=== PATIENT | male | born 1980 ===

== ENCOUNTER 2023-10-01 13:00 | Emergency (ER) | payer OTHER ==
[~2023-10-01] VITALS: Ht 175.3 cm; Wt 132.0 kg
--- NOTE | ~2023-10-01 | EKG ---
[facility] [address] [facility] [place], [place] [address] Draft EK completed, results pending confirmation PATIENT NAME: ANGÉLICAVLAD Electrocardiogram DATE OF : 76 PHYSICIAN: PRELIMINARY REPORT #: [id number] REPORT IS CONFIDENTIAL AND NOT TO BE RELEASED WITHOUT AUTHORIZATION
[~2023-10-01 13:00] MED LIST: BUSPIRONE HCL10 MG PO; HUMALOG100 UNIT/2 SUB-Q; LANTUS100 UNITS/ SUB-Q; PRAZOSIN HCL2 MG PO; RISPERDAL4 MG PO; TRAZODONE HCL100 MG PO; ZESTRIL10 MG PO
[2023-10-01] MEDS ORDERED: VENTOLIN HFA18 GM INH (13:12)
[2023-10-01] MEDS ORDERED: ASPIRIN 81 MG CHEW PO ONE (13:15)
[2023-10-01] MEDS ORDERED: SYMBICORT 16010.2 GM INH (13:15)
[2023-10-01] MEDS ORDERED: ALBUTEROL/IPRATROPIUM 3 ML NEB ONE (13:18)
[2023-10-01 13:25] LABS: MONOCYTES 5.7 % (0-12)
[2023-10-01 13:28] LABS: BASOPHILS 0.6 % (0-2); EOSINOPHILS 6.6 % (0-6); HEMATOCRIT 47.9 % (35.0-50.0); HEMOGLOBIN 16.3 g/dL (12.0-18.0); LYMPHOCYTES 23.2 % (24-44); MCH 30.7 (27-36); MCV 90.3 fl (81-99); NEUTROPHILS 63.9 % (39-80); PLATELET COUNT 156 K/uL (140-440); RBC 5.31 M/ul (4.3-5.7); RDW 13.5 (10.5-15.0)
[2023-10-01] MEDS ORDERED: SODIUM CHLORIDE 0.9% 1,000 ML IV PRN (13:30)
[2023-10-01] MEDS ORDERED: ALBUTEROL/IPRATROPIUM 3 ML NEB INH ONE ×2 (13:30→14:00)
[2023-10-01] MEDS ORDERED: DEXAMETHASONE SOD PHOS 10 MG/ML VIAL IV ONE (13:30)
[2023-10-01 13:44] LABS: ALBUMIN 3.6 g/dL (3.4-5.0); ALBUMIN/GLOBULIN RATIO 0.86 (1.1-2.4); ANION GAP 14.1 (7-21); BILIRUBIN, TOTAL 0.4 ng/dL (0.2-1.0); BUN/CREATININE RATIO 7.46 (6.0-28.6); CALCIUM 8.6 mg/dL (8.5-10.1); CREATININE, SERUM 1.34 mg/dL (0.70-1.30); POTASSIUM 4.1 mmol/L (3.5-5.1); PROTEIN, TOTAL 7.8 g/dL (6.4-8.2)
[2023-10-01 14:31] VITALS: BP 108/77
[2023-10-01] MEDS ORDERED: NEBULIZER UNIT XX (14:32)
[2023-10-01] MEDS ORDERED: PREDNISONE20 MG PO (14:32)
[2023-10-01] MEDS ORDERED: ALBUTEROL1.25 MG/3 INH (14:32)
[2023-10-01] MEDS ORDERED: DOXYCYCLINE HY100 MG PO (14:32)
== END 2023-10-01 14:37 ==
LOC: ED 13:00
PROVIDERS: Emergency Medicine
DX: J44.89 Other specified chronic obstructive pulmonary disease (principal); E10.9 Type 1 diabetes mellitus without complications; I10 Essential (primary) hypertension; E78.5 Hyperlipidemia, unspecified; F17.200 Nicotine dependence, unspecified, uncomplicated; Z79.4 Long term (current) use of insulin; Z79.899 Other long term (current) drug therapy
CPT/HCPCS: 36415; 71045; 80053; 83735; 84484; 85025; 93005; 93010; 96374; 99285-25; J1100

== ENCOUNTER 2024-04-05 10:52 | Emergency (ER) | payer MEDICARE, OTHER ==
[~2024-04-05] VITALS: Ht 175.3 cm; Wt 135.2 kg
[~2024-04-05 10:52] MED LIST changes: +ALBUTEROL1.25 MG/3 INH; +DOXYCYCLINE HY100 MG PO; +NEBULIZER UNIT XX; +PREDNISONE20 MG PO; +SYMBICORT 16010.2 GM INH; +VENTOLIN HFA18 GM INH
[2024-04-05 11:03] LABS: BASOPHILS 0.9 % (0-2); EOSINOPHILS 6.2 % (0-6); HEMATOCRIT 45.9 % (35.0-50.0); HEMOGLOBIN 16.7 g/dL (12.0-18.0); LYMPHOCYTES 27.9 % (24-44); MCH 32.2 (27-36); MCHC 36.3 g/dl (30-36); MCV 88.6 fl (81-99); MONOCYTES 4.1 % (0-12); NEUTROPHILS 60.9 % (39-80); PLATELET COUNT 166 K/uL (140-440); RBC 5.19 M/ul (4.3-5.7); RDW 13.8 (10.5-15.0)
[2024-04-05 11:18] LABS: ALBUMIN 3.3 g/dL (3.4-5.0); ALBUMIN/GLOBULIN RATIO 0.83 (1.1-2.4); ANION GAP 16.5 (7-21); BILIRUBIN, TOTAL 0.6 ng/dL (0.2-1.0); BUN/CREATININE RATIO 8.51 (6.0-28.6); CALCIUM 8.1 mg/dL (8.5-10.1); CREATININE, SERUM 1.41 mg/dL (0.70-1.30); POTASSIUM 4.5 mmol/L (3.5-5.1); PROTEIN, TOTAL 7.3 g/dL (6.4-8.2)
[2024-04-05 13:22] VITALS: BP 138/86
--- NOTE | 2024-04-06 19:27 | EKG ---
[facility] [address] [facility] [place] [address] Signed Sinus rhythm with frequent premature ventricular complexes in a pattern of bigeminy Prolonged QT Abnormal ECG When compared with ECG of 01-Oct-2023 premature ventricular complexes are more frequent Confirmed by Dago Hartman MD ([id number]) on 04/06/2024 7:27:09 PM Electronically Signed By: DAGO HARTMAN MD 04/06/241926 PATIENT NAME: ANGÉLICAVLADGODFREY ORTIZ Electrocardiogram DATE OF : 76 PHYSICIAN: DAGO HARTMAN MD REPORT #: [id number] REPORT IS CONFIDENTIAL AND NOT TO BE RELEASED WITHOUT AUTHORIZATION
== END 2024-04-05 13:24 | disposition home or self-care (01) ==
LOC: ED 10:52
PROVIDERS: Emergency Medicine
DX: R07.9 Chest pain, unspecified (principal); F41.9 Anxiety disorder, unspecified; J44.89 Other specified chronic obstructive pulmonary disease; E10.9 Type 1 diabetes mellitus without complications; I10 Essential (primary) hypertension; E78.5 Hyperlipidemia, unspecified; Z79.4 Long term (current) use of insulin; Z79.899 Other long term (current) drug therapy
CPT/HCPCS: 36415; 71045; 80053; 84484; 85025; 99285-25

== ENCOUNTER 2024-05-01 15:05 | Emergency (ER) | payer OTHER, MEDICARE ==
[~2024-05-01] VITALS: Ht 175.3 cm; Wt 129.7 kg
--- OUTSIDE RECORDS SUMMARY | 2024-05-01 15:11 | XMS ---
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 Lupe has no Care Guidelines for this patient. [place] VISIT COUNT (12 MO.) 4 [facility] TOTAL 4 NOTE: Visits indicate total known visits. [place] [place] (12 MO.) 05/01/2024 15:[address] 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
[2024-05-01 15:55] VITALS: BP 134/68
== END 2024-05-01 15:59 | disposition home or self-care (01) ==
LOC: ED 15:05
DX: M54.89 Other dorsalgia (principal); G89.29 Other chronic pain; E10.9 Type 1 diabetes mellitus without complications; J44.89 Other specified chronic obstructive pulmonary disease; I10 Essential (primary) hypertension; E78.5 Hyperlipidemia, unspecified; Z79.899 Other long term (current) drug therapy; Z79.4 Long term (current) use of insulin; Z79.51 Long term (current) use of inhaled steroids
CPT/HCPCS: 99283

== ENCOUNTER 2025-03-29 12:12 | Emergency (ER) | payer OTHER, MEDICARE ==
[~2025-03-29] VITALS: Ht 175.3 cm; Wt 135.5 kg
[2025-03-29] MEDS ORDERED: AMOXICILLIN/CLAVULANATE K 875 MG TAB PO ONE (16:45)
[2025-03-29] MEDS ORDERED: AMOX TR-K CLV1 EAC1 PO (16:46)
[2025-03-29] MEDS ORDERED: TRAMADOL HCL50 MG PO (16:47)
== END 2025-03-29 16:52 | disposition home or self-care (01) ==
LOC: ED 12:12
DX: H92.01 Otalgia, right ear (principal); J44.89 Other specified chronic obstructive pulmonary disease; I10 Essential (primary) hypertension; E10.9 Type 1 diabetes mellitus without complications; F43.10 Post-traumatic stress disorder, unspecified; E78.5 Hyperlipidemia, unspecified; Z79.4 Long term (current) use of insulin; Z79.01 Long term (current) use of anticoagulants
CPT/HCPCS: 99282